=== PATIENT | female | born 1955 | race Caucasian/White ===

== ENCOUNTER 2020-07-04 08:08 | Outpatient (CLI) | payer MEDICARE, OTHER ==
--- NOTE | 2020-07-04 17:58 | XRAY Report ---
PROCEDURE: Shoulder 3 View LT INDICATIONS: L SHOULDER PX TECHNIQUE: 4 views of the shoulder were acquired. COMPARISON: None. FINDINGS: Bones: No fractures or dislocations. No suspicious bony lesions. Visualized ribs appear intact. Mi ld acromioclavicular joint and glenohumeral joint osteoarthritis. Soft tissues: No suspicious soft tissue calcifications. IMPRESSION: 1. 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 2. No acute osseous lesion. If there persistent symptoms or continued clinical concern for pathology, then repeat advanced imaging (CT, MR, bone scan) should be considered for further evaluation. Reviewed by: Nhi Lozoya MD, PhD on 07/04/2020 4:57 PM [facility] Approved by: Nhi Lozoya MD, PhD on 07/04/2020 4:57 PM [facility] Station ID: [id number]
== END 2020-07-04 23:59 | disposition home or self-care (01) ==
LOC: DI.N 08:08
PROVIDERS: ATTEND Orthopaedic Surgery
DX: M19.012 Primary osteoarthritis, left shoulder (principal)